=== PATIENT | male | born 1955 | race American Indian/Alaskan Native ===

== ENCOUNTER 2020-12-20 18:43 | Emergency (ER) | payer OTHER ==
[2020-12-20] MEDS ORDERED: Sodium Chloride 0.9% 1,000 ML IV SCH (18:45)
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
[2020-12-20] MEDS ORDERED: Sodium Chloride 0.9% 10 ML Syringe FLUSH PRN (19:20)
[2020-12-20] MEDS ORDERED: Iopamidol 612 MG/ML 100 ML Bottle IVPUSH ONE (19:20)
[2020-12-20] MEDS ORDERED: Insulin Regular, Human 100 Units/ML 3 ML Vial SUBCUT STA (19:40)
[2020-12-20] MEDS ORDERED: Sodium Chloride 0.9% 1,000 ML IV ONE ×3 (19:45→21:30)
[2020-12-20] MEDS: fentaNYL 100 MCG/2 ML SDV ONE ×2 (20:16→20:46)
[2020-12-20] MEDS ORDERED: fentaNYL 100 MCG/2 ML SDV IVPUSH ONE (20:44)
--- NOTE | 2020-12-21 08:42 | CT ---
CT cervical spine Multiple axial sections were obtained from above C1 inferiorly through the T1-2 disc. Reconstructed sagittal and coronal images were obtained. Comparison: No prior cervical spine imaging is available. Findings: Fracture is partially visualized within the distal left clavicle on the reconstructed coronal images. Moderate disc space narrowing is noted at C5-6 and C6-7. Anterior osteophytes are noted at C3-4 through C6-7. Posterior osteophytes are seen which are most prominent at C6-7. Degenerative change is noted between the dens and anterior arch of C1. Scattered degenerative apophyseal changes noted. Moderate bilateral neural foraminal stenosis is seen on both sides at C5-6. Moderate bilateral neural foraminal stenosis is noted at C6-7 on both sides. Central canal appears minimally narrowed at C6-7. No other neural foraminal stenosis or central canal stenosis is seen. No acute fracture is seen within the cervical spine. No abnormal subluxation is seen. Degenerative change within the uncovertebral joints are seen mostly at C6-7. Scattered carotid artery atherosclerotic calcification is seen. Impression: 1. Degenerative change as noted above. Areas of central canal stenosis and neural foraminal stenosis are seen. 2. Fracture within the distal left clavicle. 3. No additional fracture or abnormal subluxation is seen. Diagnostic code #3 I agree with preliminary report from [facility], finalized on 12/20/20, 9:15 PM CDT
--- NOTE | 2020-12-21 08:43 | CT ---
Head CT Technique: Multiple axial sections through the brain were obtained. Intravenous contrast was not utilized. Reconstructed coronal and sagittal images were obtained. Comparison: No prior intracranial imaging is available. Findings: Ventricles along with basal cisterns and sulci over the convexities are mildly prominent. No abnormal parenchymal densities are seen. No evidence of intracranial hemorrhage. No midline shift or mass-effect is appreciated. Bone window settings were reviewed. Slight mucosal thickening is seen within the left maxillary sinus. Nothing acute is seen within the visualized paranasal sinuses. Mastoid sinuses show nothing acute. No acute calvarial abnormality is appreciated. Impression: 1. Mild generalized atrophy. 2. Minimal chronic appearing mucosal thickening within the left maxillary sinus. 3. Nothing acute is appreciated on noncontrast head CT exam. Diagnostic code #2 I agree with preliminary report from [facility], finalized on 12/20/20, 9:09 PM CDT
--- NOTE | 2020-12-21 08:45 | CT ---
CT thoracic spine Technique: Multiple axial sections were obtained through the thoracic spine. Reconstructed coronal and sagittal images were obtained. Comparison: No prior thoracic spine imaging is available. Findings: Scattered anterior and slight lateral osteophytes are noted. Mild scattered disc space narrowing is noted. There is no acute fracture being seen. No bony central or bony neural foraminal stenosis is appreciated. Impression: 1. Mild degenerative change as noted above. 2. Nothing acute is appreciated on CT study of the thoracic spine. Diagnostic code #2 I agree with preliminary report from [facility], finalized on 12/20/20, 9:13 PM CDT
--- NOTE | 2020-12-21 08:45 | CT ---
CT lumbar spine Technique: Multiple axial sections were obtained through the lumbar spine. Reconstructed coronal and sagittal images were obtained. Comparison: No prior lumbar spine imaging is available. Findings: Disc space calcification is seen at L1-2. Severe disc space narrowing is noted at L5-S1 with vacuum disc phenomena. Slight circumferential disc bulge is noted at L3-4 and at L4-5. Degenerative change is noted within the sacroiliac joints. Mild scattered endplate osteophytes are seen. No central canal stenosis or discrete neural foraminal stenosis is seen. No acute fracture is seen. No abnormal subluxation is seen Impression: 1. Degenerative change as noted above. 2. Nothing acute is seen on CT study of the lumbar spine. Diagnostic code #2 I agree with preliminary report from [facility], finalized on 12/20/20, 9:15 PM CDT
--- NOTE | 2020-12-21 08:48 | CR ---
Left clavicle: 2 views of the left clavicle were obtained. Comparison: No previous available Pacemaker is noted. Fracture identified within the distal clavicle. This is displaced by about 3.4 mm. Minimal degenerative change is seen within the acromioclavicular joint. No additional fracture or other abnormality is appreciated. Osteopenia is noted. Impression: 1. Mildly displaced distal left clavicle fracture. Diagnostic code #3
--- NOTE | 2020-12-21 08:49 | CT ---
CT chest Technique: Multiple axial sections were obtained from above the lung apices inferiorly through the lung bases. Intravenous contrast was utilized. Reconstructed coronal and sagittal images were obtained. Comparison: No prior chest imaging is available. Findings: Pacemaker is noted causing artifact. Mediastinum and hilar regions show no adenopathy. Atherosclerotic calcification is seen within the thoracic aorta with no aneurysm. Diffuse coronary artery calcification is seen. No pericardial thickening is appreciated. Lung window settings were reviewed. Slight scarring is believed to be present within both lung bases. No acute parenchymal change is seen. No pleural effusions or pneumothorax are seen. Bone window settings were reviewed. Nothing acute is appreciated on bone window settings. There are several old left-sided rib fractures being seen which appear healed. Note: Distal left clavicle fracture as noted on the cervical spine study. Impression: 1. Slight scarring within both lung bases. 2. Distal left clavicle fracture. 3. No other acute abnormality is appreciated on CT study of the chest. Diagnostic code #3 I agree with preliminary report from [facility], finalized on 12/20/20, 9:[address] abdomen and pelvis Technique: Multiple axial sections were obtained from above the dome of the diaphragm inferiorly through the pubic symphysis. Intravenous contrast was utilized. No oral contrast has been given. Delayed images were also obtained through the bladder. Reconstructed coronal and sagittal images were obtained. Comparison: No prior abdominal imaging is available. Findings: Liver contains no focal parenchymal abnormality. Spleen appears normal in size. Several small low density areas are seen within the spleen which are believed to be benign. Very minimal gallstone is seen within the gallbladder. Adrenal glands show no nodule. Pancreas is within normal limits. Cyst is seen within the right kidney measuring 2.6 cm. Kidneys otherwise appear within normal limits. Abdominal aorta shows atherosclerotic calcification which continues into the iliac vessels. No aneurysm is seen. No retroperitoneal adenopathy or mesenteric abnormalities are appreciated. No pelvic mass or adenopathy is seen. Small fat containing partial left inguinal hernia is noted. Appendix is seen and is normal in size. No free fluid or inflammatory change is appreciated. Minimal diverticulosis was noted. Delayed images show no contrast within the distal ureters or bladder suggesting possible dehydration. Bone window settings were reviewed which show scattered degenerative change within the spine. Degenerative change is noted within the sacroiliac joints. No acute osseous abnormality is appreciated. Impression: 1. Multiple findings as noted above which are most likely incidental. 2. No acute abnormality is appreciated. Diagnostic code #2 I agree with preliminary report from [facility], finalized on 12/20/20, 9:11 PM CDT
--- NOTE | 2020-12-21 08:50 | CR ---
Left forearm: 2 views of the left forearm were obtained. Comparison: No previous study. Vascular calcification is noted. Metallic clips are seen within the wrist. Osteopenia is present. No acute fracture or other bony abnormality is appreciated. Impression: 1. Findings as noted above. 2. No acute osseous finding is seen. Diagnostic code #2
--- NOTE | 2020-12-21 08:52 | CR ---
Left humerus: 2 views of the left humerus were obtained. Comparison: No previous study. Mildly comminuted fracture within the mid one third diaphysis of the humerus is seen. There is displacement and angulation being seen. Questionable lucency is noted within the region of the humeral fracture. Slightly displaced fracture within the distal left clavicle is noted. No additional abnormality is appreciated. Impression: 1. Mid left humerus fracture with displacement and angulation. Possible lucency at this area. This can be reevaluated during postoperative study. 2. Slightly displaced fracture within the distal left clavicle. 3. No additional abnormality is seen. Diagnostic code #3
--- NOTE | 2020-12-21 08:55 | CR ---
Left hand: 3 views of the left hand were obtained. Comparison: No previous study. Scattered joint space narrowing within the DIP and PIP joints is seen. Vascular calcification is noted within the forearm. Metallic densities are seen within the wrist. No acute fracture, dislocation or other bony abnormality is appreciated. Impression: 1. Findings as noted above. 2. No acute fracture or dislocation is appreciated. Diagnostic code #2
== END 2020-12-20 22:05 ==
LOC: JD.ED 18:43
DX: S42.032A Displaced fracture of lateral end of left clavicle, initial encounter for closed fracture (principal); F10.129 Alcohol abuse with intoxication, unspecified; E11.65 Type 2 diabetes mellitus with hyperglycemia; R74.01 Elevation of levels of liver transaminase levels; R79.89 Other specified abnormal findings of blood chemistry; Z20.822 Contact with and (suspected) exposure to COVID-19; Y90.8 Blood alcohol level of 240 mg/100 ml or more; V59.9XXA Occupant (driver) (passenger) of pick-up truck or van injured in unspecified traffic accident, initial encounter
CPT/HCPCS: 29105; 36415; 70450; 71260; 72125; 72128; 72131; 73000; 73060; 73090; 73130; 74177; 80053; 80307; 82009; 82962; 83605; 83880; 84484; 85025; 85610; 85730; 86140; 86850; 86900; 86901; 87635; 93005; 96374; 99285; J1815; J3010; J7030; 29125; 93010; U0002